=== PATIENT | male | born 1995 | race American Indian/Alaskan Native ===

== ENCOUNTER 2017-04-23 00:44 | Emergency (ER) | payer SELFPAY ==
[2017-04-23 00:53] VITALS: BP 121/83
== END 2017-04-23 01:05 | disposition left against medical advice (07) ==
LOC: ED 00:44
DX: Z53.21 Procedure and treatment not carried out due to patient leaving prior to being seen by health care provider (principal)

== ENCOUNTER 2017-11-02 21:25 | Emergency (ER) | payer OTHER ==
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
[2017-11-03 11:34] VITALS: BP 96/50
== END 2017-11-03 11:33 | disposition home or self-care (01) ==
LOC: ED 21:25
DX: S39.012A Strain of muscle, fascia and tendon of lower back, initial encounter (principal); V49.49XA Driver injured in collision with other motor vehicles in traffic accident, initial encounter; Y93.9 Activity, unspecified; Y92.89 Other specified places as the place of occurrence of the external cause; Y99.8 Other external cause status
CPT/HCPCS: 70450; 72100; 74176